=== PATIENT | female | born 1930 | race Caucasian/White ===

== ENCOUNTER 2016-07-20 16:16 | Observation (INO) | payer MEDICARE ==
[~2016-07-20] VITALS: Ht 170.2 cm; Wt 89.5 kg
--- NOTE | ~2016-07-20 | CON ---
PATIENT'S NAME: VIANEY DUQUE [facility] AGE: 86 Y [address] ROOM: [place] [address] LOCATION: [facility] [place] ADMIT DATE: 07/20/2016 Consultation DISCHARGE DATE: 07/22/2016 FAMILY PHYSICIAN: CLAUDIA DENNIS MD ATTENDING PHYSICIAN: Brian Spencer DATE OF CONSULTATION: 07/21/2016 REFERRING PHYSICIAN: ZANE RAMIREZ (GASTRO) REQUESTING PHYSICIAN: Elis Mccall MD REASON FOR CONSULTATION: Blood at the ostomy site. HISTORY OF PRESENT ILLNESS: The patient is an 86-year-old white female with past medical history significant for paroxysmal atrial fibrillation, for which she is on Coumadin, who came in to the hospital with a supratherapeutic INR. The patient was seen by her Home Health Care nurse, and was noticed to have some increased shortness of breath so she was instructed to go to the Family Practice Clinic. At that time, her INR was checked, and it was above the limits of detectability, so then it was recommended that she come in to the hospital. 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 She tells me that she feels well. She denies any problems with abdominal pain, nausea, or vomiting. Initially, there was a lot of blood at the ostomy site; however, this has cleared up over the day. She denies any fevers, chills, or sweats. No weight loss. PAST MEDICAL HISTORY: 1. Paroxysmal atrial fibrillation, on Coumadin. 2. Hypertension. 3. Hypothyroidism. 4. Colostomy. 5. Obesity. PAST SURGICAL HISTORY: Reviewed. See chart for details. SOCIAL HISTORY: The patient is a non-smoker, occasional alcohol, and no drug use. The patient does have a [id number] history of smoking. FAMILY HISTORY: There is no family history of colon cancer. PATIENT'S NAME: VIANEY DUQUE [facility] AGE: 86 Y [address] ROOM: [place] [address] LOCATION: [facility] [place] ADMIT DATE: 07/20/2016 Consultation DISCHARGE DATE: 07/22/2016 FAMILY PHYSICIAN: CLAUDIA DENNIS MD ATTENDING PHYSICIAN: Brian Spencer MEDICATIONS: 1. Tylenol. 2. Calcium. 3. Debrox Otic drops. 4. Citalopram. 5. Lasix. 6. Levothyroxine. 7. Magnesium oxide. 8. Metoprolol. 9. Multivitamin. 10. Protonix. 11. Potassium. 12. Florastor. 13. Tramadol. 14. Sanctura. 15. Vitamin D. 16. Coumadin. ALLERGIES: REVIEWED. SEE CHART FOR DETAILS. REVIEW OF SYSTEMS: Negative other than mentioned in the HPI. A 10-point review of systems was negative other than mentioned in HPI. PHYSICAL EXAMINATION: VITAL SIGNS: Temperature is 36.7, blood pressure is 118/75, pulse is 93, and respiratory rate is 16. GENERAL: The patient is awake and alert, in no acute distress. HEENT: Within normal limits. CARDIOVASCULAR: Regular rate and rhythm without murmurs, rubs, or gallops. LUNGS: Clear to auscultation bilaterally. No wheezes, rales, or rhonchi. GASTROINTESTINAL: Abdominal exam is soft and nontender. Bowel sounds are normal. Ostomy was visualized, brown stool in the bag. No bright red blood or melena was noted. LABORATORY DATA: BUN of 16 and creatinine of 1.2. White blood cell count of 5.8 and hemoglobin of 12.4. Most recent INR was 3.7, down significantly from 7.6 on July 20, 2016. ASSESSMENT AND PLAN: Bleeding from the ostomy site. I suspect this blood seen was likely due to supratherapeutic INR. It is not uncommon to see some bleeding from the tissue PATIENT'S NAME: DUNIAVIANEY [facility] AGE: 86 Y [address] ROOM: [address] [address] LOCATION: [facility] [place] ADMIT DATE: 07/20/2016 Consultation DISCHARGE DATE: 07/22/2016 FAMILY PHYSICIAN: CLAUDIA DENNIS MD ATTENDING PHYSICIAN: Brian Spencer right around the ostomy site or ostomy site in this instance. Her hemoglobin is stable and normal at 12.4, and she currently has brown stool in the bag and no evidence of further bleeding. Therefore, I do not think we need to proceed with any further evaluation through the ostomy. I did speak to the patient's daughter, Loan, over the phone who is the medical power of associate attorney. I agree that she can likely be discharged home tomorrow. Please call with any further questions. J MD ANDRES VICTORIA/modl /[id number] d: 07/22/16 0143 t: 08/26/16 0844, CONSULTATION REPORT
--- NOTE | ~2016-07-20 | HP ---
PATIENT'S NAME: VIANEY DUQUE [facility] AGE: 86 Y [address] ROOM: [place] [address] LOCATION: [facility] [place] ADMIT DATE: 07/20/2016 History & Physical DISCHARGE DATE: FAMILY PHYSICIAN: CLAUDIA DENNIS MD ATTENDING PHYSICIAN: Brian Spencer DATE OF SERVICE: CHIEF COMPLAINT: Supratherapeutic INR and lower GI bleeding. HISTORY OF PRESENTING ILLNESS: This 86-year-old white female with previous history of paroxysmal atrial fibrillation, on long-term anticoagulation with warfarin, essential hypertension, and colocutaneous fistula, status post colostomy placement, was sent to [facility] today from the [facility] with a chief complaint of dyspnea but also bleeding around her ostomy site. Briefly, she had been at home and seen by her [facility] home improvement installer today. Because she was noticing some increased shortness of breath particularly with exertion, she was instructed to go to her Family Practice Clinic. While she was there, routine PT/INR testing revealed an INR that was above the limits of detectability. She was noticed to have significant amount of dark blood around the ostomy site, and she indicates that she has changed her bag twice today because of this issue. Because of concern for occult bleeding, it was decided to admit her to the hospital for definitive evaluation and management. On her arrival, she complains only of dyspnea with exertion. She reports feeling hungry. She denies headaches, dizziness, or lightheadedness. She denies chest pain. No significant congestion or cough and no hali abdominal pain. Her ostomy bag has been functioning normally, and she has not noticed any problems with it. She does void regularly as well. She has some swelling in her feet, which is a chronic and recurrent problem. She had apparently stopped taking her diuretic medication because "it was making me urinate too much." She apparently did not tell her primary care physician about this. ALLERGIES: NO KNOWN DRUG ALLERGIES. ILLNESSES: 1. Paroxysmal atrial fibrillation, on long-term anticoagulation with warfarin. PATIENT'S NAME: VIANEY DUQUE [facility] AGE: 86 Y [address] ROOM: [place] [address] LOCATION: [facility] [place] ADMIT DATE: 07/20/2016 History & Physical DISCHARGE DATE: FAMILY PHYSICIAN: CLAUDIA DENNIS MD ATTENDING PHYSICIAN: Brian Spencer 2. Essential hypertension. 3. Hypothyroidism. 4. Colocutaneous fistula, status post colostomy placement. 5. Obesity. 6. Moderate protein-calorie malnutrition. 7. Long-term anticoagulation with warfarin. CURRENT MEDICATIONS: 1. Acetaminophen 650 mg p.o. q.6 hours p.r.n. pain. 2. Calcium 1000 mg p.o. daily. 3. Debrox otic drops 5-10 mL each ear daily p.r.n. 4. Citalopram 20 mg p.o. daily. 5. Lasix 20 mg p.o. daily. 6. Levothyroxine 137 mcg p.o. daily. 7. Magnesium oxide 400 mg p.o. b.i.d. 8. Metoprolol 12.5 mg p.o. b.i.d. 9. Multivitamin daily. 10. Protonix 40 mg p.o. daily. 11. Potassium 20 mEq p.o. daily. 12. Florastor 250 mg p.o. b.i.d. 13. Tramadol 50 mg p.o. q.6 hours. 14. Sanctura 20 mg p.o. b.i.d. 15. Vitamin D 50,000 units p.o. q.. 16. Coumadin 3 mg p.o. daily. FAMILY HISTORY: Negative for heart attack or stroke. SOCIAL HISTORY: She is and currently lives in [place]. She has 2 children and provide good social support. She does have a 30- to [id number] history of smoking but has been quit for a couple of years. No significant alcohol use. REVIEW OF SYSTEMS: As per HPI. All other organ systems were reviewed and are negative. OBJECTIVE: VITAL SIGNS: Temperature 98.3, pulse 74, respirations 18, blood pressure 142/82, O2 saturation 93% on room air. GENERAL: She is frail, anxious, but cooperative, seated in the wheelchair, in no acute distress. SKIN: Supple, pale, warm, and dry. There are no obvious rashes. HEENT: Otherwise, normocephalic. Sclerae nonicteric. Pupils equal, round, and reactive to light and accommodation. Extraocular movements appear intact. Nasal turbinates normal in appearance. Oropharynx clear. Mucous membranes PATIENT'S NAME: VIANEY DUQUE [facility] AGE: 86 Y [address] ROOM: [address] [place], [place] [address] LOCATION: [facility] [place] ADMIT DATE: 07/20/2016 History & Physical DISCHARGE DATE: FAMILY PHYSICIAN: CLAUDIA DENNIS MD ATTENDING PHYSICIAN: Brian Spencer are pink and moist. NECK: Supple. Plethoric and obese. No masses or adenopathy. No thyromegaly. No JVD. CHEST: Wall is symmetrical. HEART: Irregularly irregular. LUNGS: Diminished at the bases. No crackles or wheezes are heard. ABDOMEN: Soft and obese. Nontender. Bowel sounds present. No masses or hepatosplenomegaly. There is an ostomy in the left mid abdomen. There is some yellowish stool present but 30 to 40 mL of dark blood mixed around the bag and at the edges of the ostomy. No bright red blood. No lesions are identified. and RECTAL: Not done. EXTREMITIES: Display 1 to 2+ pitting edema. No cyanosis. NEUROLOGIC: Mentation is little slowed, but there are no focal deficits. LABORATORY AND X-RAY DATA: None available. ASSESSMENT AND PLAN: 1. Acute lower gastrointestinal bleeding. We will admit to observation care. She is hemodynamically stable, and this appears to be a slow leak. We will get a CBC and follow up on that when the results are known and transfuse as necessary. We will consider gastroenterologic evaluation depending on her clinical progress, but I suspect this is related to her supratherapeutic INR. 2. 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 It is unclear, but I suspect she may have been misadministring her anticoagulation at home. We will have her daughter try to do a pill count. Her INR is currently unreadable. We will try to get an INR now, but plan to initiate reversal with vitamin K. We will give vitamin K 10 mg subcu x1 and follow this serially. We will contemplate options for reinitiating anticoagulation, but I suspect she will need to have supervised medication administration at this point. 3. Paroxysmal atrial fibrillation. Appears rate controlled, stable. 4. Dyspnea, subjective. She is oxygenating and ventilating normally. We will await her hemoglobin and follow up on that when the results are known. We will also get a chest x-ray and proBNP. She might benefit from the reinitiation of her diuretic therapy. There is no documented history of heart failure. She does have pulmonary hypertension. 5. Colocutaneous fistula, status post colostomy placement. The ostomy appears to be functioning normally otherwise. We will let her eat tonight and just continue to follow. 6. Essential hypertension, adequately controlled. We will monitor the trend and make adjustments as necessary. 7. Hypothyroidism. Plan to continue with thyroid replacement. PATIENT'S NAME: VIANEY DUQUE [facility] AGE: 86 Y [address] ROOM: [place] [address] LOCATION: [facility] [place] ADMIT DATE: 07/20/2016 History & Physical DISCHARGE DATE: FAMILY PHYSICIAN: CLAUDIA DENNIS MD ATTENDING PHYSICIAN: Brian Spencer 8. Deep venous thrombosis prophylaxis. No heparin or Lovenox in light of the coagulopathy as above. We will try to mobilize her carefully and follow her coagulation studies. MD CHAPARRITA MEZA/modl /[id number] P D: [id number] T: [id number] HISTORY & PHYSICAL
--- NOTE | ~2016-07-20 | ECHO ---
Transthoracic Echocardiography Report (TTE) Demographics Patient Name VIANEY DUQUE Date of Study 07/21/2016 Patient Number [id number] Visit Number [id number] Date of 1930 Room Number G3220 Accession Number [id number] Gender Female Age 86 year(s) Referring Suyapa Covington PAC Tapering Machine Operator Kaitlynn Dillon Physician RDCS Physician Interpreting Lisseth Leigh Filling Mixer Physician Supervising Ordering Physician MD/MLP Nurse Stress Janitorial Tech Conclusions Contractility Score Summary Global Left Ventricular Hypokinesis was noted. Summary Technically difficult exam. The estimated left ventricular ejection fraction is 30-35%. Severe concentric left ventricular hypertrophy.Normal internal dimension.Inferior and lateral segments are mild to moderately hypokinetic.Anterior wall and septum are flattened during systole and diastole consistent with increased pressure and volume overload of the RV.In addition they are moderate to severely hypokinetic. Moderate to severely hypokinetic and dilated right ventricle. Severe bi atrial dilatation and increased pressures. Mild-moderate mitral regurgitation by color Doppler. The aortic valve is mildly sclerotic. Descending Aorta as seen in the parasternal long axis view appears moderately dilated. Abdominal aorta mildly dilated Moderate tricuspid regurgitation by color Doppler. There is moderate pulmonary hypertension. The pulmonary pressure (RVSP) is 55 mmHg. Procedure Type of Study TTE procedure:2D Echocardiogram. Procedure Date Date: 07/21/2016 Start: 02:43 PM Study Location: Inpatient Portable Technical Quality: Excellent Appropriate Use Criteria: 9 Patient Status: Routine HR: 90 bpm BP: 136/91 mmHg M-Mode/2D Measurements LV Diastolic Dimension: 4.8 cm LV Systolic Dimension: 3.84 cm LV Septum Diastolic: 1.59 cm LV PW Diastolic: 1.56 cm AO Root Dimension: 1.5 cm Cardiac Output: 3.42 l/min LA Dimension: 6 cm EF Estimated: 35 % LVOT: 2 cm LVOT VTI: 12.1 cm RV Base: 3.88 cm LV Stroke volume: 37.99 ml RV Length: 7.04 cm TAPSE: 1.36 cm TDI-S': 10.1 cm/s Doppler Measurements AV Peak Velocity: 1.35 m/s MV Peak E-Wave: 0.72 m/s AV Peak Gradient: 7.29 mmHg MV Peak A-Wave: 0.36 m/s AV Mean Gradient: 4 mmHg MV E/A Ratio: 2.03 LVOT Peak Velocity: 0.84 m/s MV P1/2t: 37 msec TR Gradient:42.77 mmHg PV Peak Velocity: 0.89 m/s Estimated RAP:10 mmHg PV Peak Gradient: 3.15 mmHg Estimated RVSP: 53 mmHg Estimated PASP: 52.77 mmHg E' Lateral Velocity: 0.1 m/s A' Lateral Velocity: 0.07 m/s Findings Left Ventricle Severe concentric left ventricular hypertrophy.Normal internal dimension. Inferior and lateral segments are mild to moderately hypokinetic.Anterior wall is flattened during systole and diastole and is moderate to severely hypokinetic.LVEF:30-35%. Right Ventricle Moderate to severely dilated right ventricle. Moderate to severely reduced right ventricular function. Left Atrium The left atrium is severely dilated. Increased LA pressures. Right Atrium The right atrium is severely dilated. Dilated IVC with poor inspiratory collapse consistent with elevated RA pressure. IVC measures 2.37cm Mitral Valve Mild-moderate mitral regurgitation by color Doppler. Aortic Valve The aortic valve is mildly sclerotic. Descending Aorta as seen in the parasternal long axis view appears moderately dilated. Abdominal aorta mildly dilated Normal ascending aortic measurement Tricuspid Valve Moderate tricuspid regurgitation by color Doppler. There is moderate pulmonary hypertension. The pulmonary pressure (RVSP) is 55 mmHg. Pulmonic Valve Normal pulmonic valve structure and function. Pericardial Effusion Trivial posterior pericardial effusion. Miscellaneous Visualized portions of the aortic root and ascending aorta appear normal in size. Pleural Effusion Pleural effusion. Contractility Score LV regional wall motion:(0-Non visualized 1-Normal 2-Hypokinesis 3-Akinesis 4-Dyskinesis 5-Aneurysm) Signature dtt: Lu Montanez dtd: 07/21/16 1443 Physician Self Edit
--- NOTE | ~2016-07-20 | DS ---
PATIENT'S NAME: VIANEY DUQUE [facility] AGE: 86 Y [address] ROOM: [address] [place], [place] [address] [place] [facility] [place]: 07/20/2016 Discharge Summary DISCHARGE DATE: 07/22/2016 FAMILY PHYSICIAN: Bucky Nice MD ATTENDING PHYSICIAN: Brian Spencer FINAL DIAGNOSES: 1. Lower gastrointestinal bleed. 2. Supratherapeutic INR. 3. Paroxysmal atrial fibrillation. 4. Congestive heart failure, acute on chronic. 5. Hypothyroidism. CONSULTANTS ON THE CASE: Dr. Lopes for Gastroenterology. HOSPITAL COURSE: Please see details of admission in H and P by Dr. Spencer. Briefly, the patient was admitted secondary to concern for gastrointestinal bleeding. She was found to have a supratherapeutic INR at 7.67. The patient had noticeable bright red blood in her colostomy. She denies any abdominal cramping or distention. The patient was admitted for further evaluation. We did give vitamin K 10 mg subcu. Laboratory studies were followed closely for further decline. The patient also complained of shortness of breath. She was found not to be anemic. She did have some volume overload with an elevated proBNP at 8014. We did opt to get a 2D echo for further evaluation. On hospital day 2, the patient had less blood in her ostomy. Again, no abdominal pain or nausea and vomiting. She was able to work with therapies. Her shortness of breath was better. We did resume her Lasix orally. On 07/22, the patient was feeling good. Her hemoglobins have been stable. Her INR was down to a therapeutic level. The patient was noted to be hypoxic with 84% to 85% on room air. The patient does have oxygen use for night, but we did qualify her for daytime use as well. After further discussion of her echo results with Dr. Nice, it was deemed that the patient would follow up with him, and further cardiology consultation would be obtained. The patient noted just dark blood and some clots in her ostomy today. No further active bleeding noted. The patient was agreeable to discharge home. Compliance was stressed. The patient was discharged in stable condition. DIAGNOSTICS: Radiology reports: Chest x-ray on the showed cardiomegaly. Fibrotic stranding present in both lungs. No infiltrate, effusion, or pneumothorax identified. LABORATORY STUDIES: On the 4th, sodium 140, potassium 4.5, chloride 112, bicarbonate 21, glucose 96, BUN 16, and creatinine 1.2. Phosphorus 3.4. TSH was. 6.3. ProBNP 8014. On admission, hemoglobin was 11.9; on the 4th, it was 11.0; and prior to discharge, it was 11.4. PATIENT'S NAME: VIANEY DUQUE [facility] AGE: 86 Y [address] ROOM: [address] [address] [place] [facility] [place]: 07/20/2016 Discharge Summary DISCHARGE DATE: 07/22/2016 FAMILY PHYSICIAN: Bucky Nice MD ATTENDING PHYSICIAN: Brian Spencer DISCHARGE INSTRUCTIONS: The patient is discharged back to [place] with their home health care to be involved. She will follow up with Dr. Amor with Gastroenterology on 08/03/2016, and with Dr. Nice at [facility] on 07/26/2016. ACTIVITY: No driving. Otherwise, as tolerated. Weightbearing status is full. DIET: Low salt, cardiac diet. DISCHARGE MEDICATIONS: 1. Levothyroxine 137 mcg daily. 2. Protonix 40 mg daily. 3. Tylenol 650 mg daily. 4. Magnesium oxide 400 mg twice daily. 5. Metoprolol tartrate 12.5 mg twice daily. 6. Potassium chloride 20 mEq daily. 7. Calcium one tablet twice daily. 8. Coumadin 2 mg daily. 9. Fosamax 70 mg every 7 days. 10. Reclast annually. 11. Lasix 20 mg daily. We do appreciate participating in this patient's care, and thank you very much for the ability to serve her while hospitalized at [facility]. Time spent coordinating details of discharge was 30 minutes which were spent coordinating with consulting physicians and care management, completion of medication reconciliation, and education to the patient and family. Order was sent for 2 L of oxygen per nasal cannula at all times. Details of discharge were discussed with Dr. Nice prior to dismissal. URVASHI ANSARI FOR MD NAYELY LOPEZ/modl /[id number] d: 07/23/16 1310 t: 07/26/16 1451, DISCHARGE SUMMARY
[~2016-07-20 16:16] MED LIST: ALDACTONE25 MG PO; AUGMENTIN875 MG PO; CELEXA20 MG PO; CENTRUM SILVER1 EAC1 PO; CITRACAL950 MG PO; COUMADIN ** IA3 MG PO; COUMADIN ** IA5 MG PO; COZAAR50 MG; COZAAR50 MG PO; DEBROX,CARBAMID15 ML OTIC; DIFLUCAN200 MG PO; DRISDOL 5050000 UNIT PO; FLORASTOR250 MG PO; IMODIUM2 MG PO; K-TAB 10MEQ10 MEQ PO; LASIX20 MG PO; LEVOTHROID (S137 MCG PO; LOPRESSOR25 MG PO; MAG-OX-400(241400 MG PO; OSCAL + D500 MG PO; PRESERVISION A1 EAC1 PO; PROTONIX40 MG PO; SANCTURA 20MG20 MG PO; THERA-VITE W/ B1 TAB PO; TYLENOL325 MG PO; ULTRAM50 MG PO; ZEBETA5 MG PO; ZIAC 10 MG10 MG; ZYVOX600 MG PO
[2016-07-20] MEDS ORDERED: COUMADIN ** 9/62 MG PO (17:48)
[2016-07-20] MEDS ORDERED: COUMADIN ** IA3 MG PO (17:48)
[2016-07-20] MEDS ORDERED: ALENDRONATE SOD70 MG PO (17:49)
[2016-07-20] MEDS ORDERED: RECLAST 55 MG/100 M IV (17:50)
--- NOTE | 2016-07-20 17:53 | NUR ---
86 Y/O FEMALE ADMITTED FOR SOB. PT DAUGHTER STATES THAT PT HAS NOT BEEN TAKING HER LASIX SINCE MARCH 2016. PT ALSO HAS A VERY ELEVATED INR, PT HAS BEEN TAKING HER COUMADIN PER DR ORDERS AT 6MG EVERY DAY BUT MONDAY WHEN SHE TAKES 4.5MG THEN. PT HAS A SIGNIFICANT MEDICAL & SURGICAL HISTORY, PLEASE SEE ADMISSION ASSESMENT PART ONE FOR PT ENTIRE HISTORY. SOME HX INCLUDES COLOSTOMY, BILAT PL EFFUSION, GI BLEED, URINARY INCONTINANCE, FORMER SMOKER X66 YRS QUIT IN 2013, HTN, A FIB, CHAF, HX PE REPORT GIVEN TO PT PRIMARY CARE NURSE BRAULIO SANZ PT ALREADY KNOWLEDGED ON ADM EDUCATION.
[2016-07-20 18:37] LABS: BASOPHIL % 0.7 %; EOSINOPHIL % 0.7 %; HEMATOCRIT 37.5 % (30.0-46.0); HEMOGLOBIN 11.9 g/dL (10.0-15.0); IMMATURE GRANULOCYTE % 0.2 %; LYMPHOCYTE # 0.9 K/uL (0.8-4.0); LYMPHOCYTE % 15.1 %; MCH 30.1 pg (27.0-34.0); MCHC 31.7 gm/dL (32.0-36.5); MCV 94.9 fl (83.0-98.0); MONOCYTE # 0.6 K/uL (0.0-1.0); MONOCYTE % 10.5 %; MPV 10.1 fl (9.4-12.4); NEUTROPHIL # (ANC) 4.4 K/uL (1.8-7.8); NEUTROPHIL % 72.8 %; NRBC % 0 /100WBC (0-0.00); PLATELET COUNT 176 K/uL (150-450); RBC 3.95 M/uL (3.00-5.00); RDW-CV 17.2 % (11.9-14.6); WBC 6.1 K/uL (4.0-11.0)
[2016-07-20 18:56] LABS: PROTIME 82.2 SECONDS (9.8-11.4)
[2016-07-20 19:13] LABS: INR - (THERAPEUTIC) 7.67 (0.92-1.07)
--- NOTE | 2016-07-20 19:30 | NUR ---
PATIENT ADMITTED FROM [facility] FOR SHORTNESS OF BREATH, WEIGHT GAIN, AND SUPRATHERAPUTIC INR. CR RESULT OF INR 7.67 CALLED TO . PATIENT ALERT AND ORIENTED X3. VSS. ON O2 AT 2LNC. WEARS O2 AT HS AT HOME. PATIENT IS PLEASANT AND COOPERATIVE WITH CARES. 22 GAUGE IV TO RIGHT HAND X1 ATTEMPT. PATIENT IS FROM [place]. COLOSTOMY INTACT WITH SOME BLOODY OUTPUT NOTED. PATIENT HAS VENOUS STAINING TO LOWER EXTREMETIES. PATIENT WILL RECIEVE SUB Q VITAMIN K TONIGHT AND RE CHECK LABS.
[2016-07-21 00:26] LABS: HEMATOCRIT 35.7 % (30.0-46.0); HEMOGLOBIN 11.3 g/dL (10.0-15.0)
[2016-07-21 06:09] LABS: ALBUMIN 3.1 gm/dL (3.5-5.0); ANION GAP 11.5 (10.0-19.0); CALCIUM 8.4 mg/dL (8.5-10.5); CREATININE 1.2 mg/dL (0.5-1.1); PHOSPHORUS 3.4 mg/dL (2.5-4.9); PROTIME 69.2 SECONDS (9.8-11.4)
[2016-07-21 06:19] LABS: INR - (THERAPEUTIC) 6.47 (0.92-1.07)
[2016-07-21 06:21] LABS: POTASSIUM 4.5 mMol/L (3.7-5.1)
[2016-07-21 06:30] LABS: BASOPHIL % 0.5 %; EOSINOPHIL # 0.1 K/uL (0.0-0.5); EOSINOPHIL % 0.9 %; HEMATOCRIT 35.2 % (30.0-46.0); IMMATURE GRANULOCYTE % 0.7 %; LYMPHOCYTE # 1.1 K/uL (0.8-4.0); LYMPHOCYTE % 19.6 %; MCH 30.1 pg (27.0-34.0); MCHC 31.3 gm/dL (32.0-36.5); MCV 96.2 fl (83.0-98.0); MONOCYTE # 0.9 K/uL (0.0-1.0); MONOCYTE % 15.7 %; MPV 10.5 fl (9.4-12.4); NEUTROPHIL # (ANC) 3.6 K/uL (1.8-7.8); NEUTROPHIL % 62.6 %; NRBC % 0 /100WBC (0-0.00); RBC 3.66 M/uL (3.00-5.00); RDW-CV 17.3 % (11.9-14.6); WBC 5.8 K/uL (4.0-11.0)
[2016-07-21 06:31] LABS: PLATELET COUNT 134 K/uL (150-450)
[2016-07-21 12:09] LABS: HEMATOCRIT 36.1 % (30.0-46.0); HEMOGLOBIN 11.2 g/dL (10.0-15.0)
--- NOTE | 2016-07-21 16:00 | NUR ---
SPOKE TO PATIENT AND HER DAUGHTER AT THE BEDSIDE. INTRODUCED CM AND OUR ROLE. PATIENT LIVES AT [facility] ON [address] [facility] [address]. SHE GETS HELP FROM [facility] AT [facility]. PATIENT IS PLANNING ON GOING HOME. HER DAUGHTER HAS ARRANGED FOR SOMEONE AT [facility] TO GIVE VIANEY HER MEDICATION. SHE AGREES THAT VIANEY IS NOT ABLE TO MANAGE HER MEDS HERSELF. SHE REPORTS THAT ASHLYN FROM [facility] WILL BE HELPING WITH THE MEDS. VIANEY AND HER DAUGHTER DENIE THAT THERE ARE ANY OTHER DICHARGE NEEDS. CM WILL CONT TO FOLLOW NEEDED.
--- NOTE | 2016-07-21 16:07 | NUR ---
Significant Event:PT UP TO BR WITH STANDBY ASSIST. [place] AND HAS HEARING AIDE. INR TODAY WAS 6.47. VSS. C/O SOB WHEN UP TO BR AND O2 2L PER NC THIS AFTERNOON. COLOSTOMY DRAINING RED TINGED FLUID 550MLS EMPITIED AT NOON AND THEN HAD 50MLS MORE BROWN TINGED STOOL THIS AFTERNOON. VERY STRONG AND FOUL SMELLING. ENCOURAGED TO CALL FOR HELP BUT IMPULSIVE. HIGH FALL RISK. HX NECK TUMOR, PE.GAVE LASIX AND HAS BEEN UP TO BR WITH STANDBY X3. Follow up:
[2016-07-21 18:02] LABS: HEMATOCRIT 39.7 % (30.0-46.0); HEMOGLOBIN 12.4 g/dL (10.0-15.0)
[2016-07-21 18:49] LABS: INR - (THERAPEUTIC) 3.7 (0.92-1.07); PROTIME 39.4 SECONDS (9.8-11.4)
[2016-07-22 00:31] LABS: HEMATOCRIT 34.5 % (30.0-46.0); HEMOGLOBIN 10.8 g/dL (10.0-15.0)
--- NOTE | 2016-07-22 04:23 | NUR ---
Significant Event: PATIENT IS ALERT AND ORIENTATED X3. AMBULATES WITH STANDBY ASSIST. SHE GETS SOB WHEN AMBULATING. SHE HAS AN COLOSTOMY INTACT THAT SHE TAKES CARE OF WITH [facility]NAL ASSISTANCE. COLOSTOMY OUTPUT WAS FOUL SMELLING, WITH 600ML TOTAL OUT COLOR WAS BROWNISH WITH VISABLE BLOOD IN IT. INR IS 3.70, DOC [place] NOTIFIED NO NEW ORDERS. WEARS BILATERAL HEARING AIDS. NO COMPLAINTS OF PAIN OR DISCOMFORT PLAN IS TO GO BACK TO [place]. Follow up: CONTINUE MONITORING STOOLS AND CHECKING LABS. KEEP PATIENT SAFE FROM FALLS.
[2016-07-22 06:19] LABS: HEMATOCRIT 34.1 % (30.0-46.0); HEMOGLOBIN 10.7 g/dL (10.0-15.0)
[2016-07-22 06:32] LABS: INR - (THERAPEUTIC) 2.56 (0.92-1.07); PROTIME 27.1 SECONDS (9.8-11.4)
[2016-07-22 11:56] LABS: HEMATOCRIT 36.3 % (30.0-46.0); HEMOGLOBIN 11.4 g/dL (10.0-15.0)
[2016-07-22] MEDS ORDERED: LASIX20 MG PO (14:00)
--- NOTE | 2016-07-22 16:00 | NUR ---
DISCHARGE: Pt. and daughter were explained discharge instructions, using blood thinners, eating heart healthy diet, and new medication: lasix. No questions or concerns, verbalized understanding of education. IV removed by primary nurse, pouch changed before d/c. Left with all belongings and prescriptions. Taken to front door by aide and driven home by daughter to [facility] with home health.
--- NOTE | 2016-07-22 16:26 | NUR ---
Significant Event: PT A&O x3, forgetful. VSS, O2 at 2L per nasal cannula. PT ambulates with walker, SBA. Colostomy patent, pouch changed. Dismissal instructions/prescriptions discussed with PT/daughter, voiced understanding. PT home O2 supply brought to hospital. PT dismissed to home with daughter. IV dc'd. Follow up:
[2016-08-05] MEDS ORDERED: DUREZOL5 ML (16:37)
[2016-08-05] MEDS ORDERED: ILOTYCIN1 GM (16:38)
== END 2016-07-22 16:00 | disposition other institution (70) ==
LOC: GMSU 16:16
PROVIDERS: Internal Medicine; Physician Assistant; ADMIT Family Medicine
DX: K92.2 Gastrointestinal hemorrhage, unspecified (principal); I13.0 Hypertensive heart and chronic kidney disease with heart failure and stage 1 through stage 4 chronic kidney disease, or unspecified chronic kidney disease; N18.3 Chronic kidney disease, stage 3 (moderate); I50.9 Heart failure, unspecified; I48.0 Paroxysmal atrial fibrillation; E03.9 Hypothyroidism, unspecified; E66.9 Obesity, unspecified; Z87.891 Personal history of nicotine dependence; Z93.3 Colostomy status; Z98.890 Other specified postprocedural states; Z79.01 Long term (current) use of anticoagulants; Z79.899 Other long term (current) drug therapy
CPT/HCPCS: C9113; G0378; G0379; G8978; G8979; G8980

== ENCOUNTER → 2016-09-20 | Outpatient (CLI) | payer MEDICARE ==
[~2016-09-20] MED LIST changes: +ALENDRONATE SOD70 MG PO; +COUMADIN ** 9/62 MG PO; +DUREZOL5 ML; +ILOTYCIN1 GM; +RECLAST 55 MG/100 M IV
== END | disposition disaster alternative care site (69) ==
LOC: GAMB 15:51
DX: K92.0 Hematemesis (principal); K94.01 Colostomy hemorrhage; K92.2 Gastrointestinal hemorrhage, unspecified; Z79.01 Long term (current) use of anticoagulants
CPT/HCPCS: A0425; A0429

== ENCOUNTER → 2016-11-08 | Outpatient (CLI) | payer MEDICARE ==
[2016-11-08 15:27] LABS: BILIRUBIN URINE NEGATIVE (NEGATIVE); BLOOD URINE NEGATIVE /UL (NEGATIVE); COLOR URINE YELLOW (YELLOW); GLUCOSE URINE NEGATIVE (NEGATIVE); KETONE URINE NEGATIVE (NEGATIVE); LEUKOCYTES URINE 25 /UL (NEGATIVE); NITRITE URINE NEGATIVE (NEGATIVE); PROTEIN URINE 30 mg/dL (NEGATIVE); SPEC GRAVITY URINE 1.015 (1.003-1.035); TURBIDITY URINE CLEAR (CLEAR); UROBILINOGEN URINE NORMAL (NORMAL)
[2016-11-08 15:36] LABS: RBC URINE 0-2 #/HPF (NEGATIVE)
[2016-11-08 15:40] LABS: WBC CLUMPS URINE FEW (NEGATIVE)
[2016-11-08 15:49] LABS: BACTERIA URINE FEW (NEGATIVE)
== END | disposition disaster alternative care site (69) ==
LOC: GLAB 15:01
PROVIDERS: Family Medicine
DX: M54.5 Low back pain (principal); R10.9 Unspecified abdominal pain

== ENCOUNTER → 2016-11-10 | Outpatient (CLI) | payer MEDICARE | END | disposition disaster alternative care site (69) | LOC: GRAD 09:09 | DX: R10.9 Unspecified abdominal pain (principal); I48.2 Chronic atrial fibrillation; K76.0 Fatty (change of) liver, not elsewhere classified; K80.20 Calculus of gallbladder without cholecystitis without obstruction; E80.7 Disorder of bilirubin metabolism, unspecified; J90 Pleural effusion, not elsewhere classified; R18.8 Other ascites; R74.8 Abnormal levels of other serum enzymes ==

== ENCOUNTER → 2016-11-11 | Outpatient (CLI) | payer MEDICARE | END | disposition disaster alternative care site (69) | LOC: GAMB 00:48 | DX: R06.00 Dyspnea, unspecified (principal); K91.840 Postprocedural hemorrhage of a digestive system organ or structure following a digestive system procedure; I48.2 Chronic atrial fibrillation; E03.9 Hypothyroidism, unspecified; J44.9 Chronic obstructive pulmonary disease, unspecified; I11.0 Hypertensive heart disease with heart failure; I50.9 Heart failure, unspecified; R06.02 Shortness of breath; Z79.01 Long term (current) use of anticoagulants; Z79.899 Other long term (current) drug therapy | CPT/HCPCS: A0422; A0425; A0427; J7030 ==